=== PATIENT | female | born 1985 | race Hispanic/Latino ===

== ENCOUNTER 2017-08-01 06:41 | Day surgery (SDC) | payer OTHER ==
[2017-08-01] MEDS ORDERED: Propofol 10 mg/ml Inj (20 ML) ONE ×2 (08:47→09:16)
[2017-08-01] MEDS ORDERED: Lidocaine Hydrochloride 5 ML INJ ONE (08:47)
--- NOTE | 2017-08-01 08:58 | CP.SDSHP ---
Same Day Surgery H & P - History Proposed Procedure: egd. colonoscopy Pre-Op Diagnosis: epigastric pain. Chronic diarrhea - Previous Medical/Surgical History Cardiac: Other (hyperlipidemia, ) Neuro: Backaches, Other (herniated disc, Hpylori gastritis) Pain: 4.Moderate Pain Previous Surgical History: NSVDx3 - Allergies Allergies: Allergies No Known Allergies Allergy (Verified 08/01/17 07:35) - Physical Exam Vital Signs: Vital Signs 08/01/17 07:48 Temperature 97 F L Pulse Rate 62 Respiratory 19 Rate Blood Pressure 132/79 O2 Sat by Pulse 99 Oximetry Mental Status: Alert & Oriented x3 Neuro: WNL Heart: WNL Lungs: WNL GI: WNL - Impression Impression: epigastric pain. chronic diarrhea Pt. Evaluated Today:Candidate for Anesthesia & Procedure: Yes - Date & Time Date: 08/01/17 Time: 08:58 Short Stay Discharge - Short Stay Discharge Admitting Diagnosis/Reason for Visit: CHANGE IN BOWEL HABIT, DIARRHEA, UNSPECIFIED, EPIG Disposition: HOME/ ROUTINE
[2017-08-01] MEDS ORDERED: Pantoprazole 40 mg EC Tab PO STA (08:59)
[2017-08-01 09:06] VITALS: O2SAT 100
[2017-08-01 09:45] VITALS: TEMP 97.8
[2017-08-01 10:20] VITALS: BP 103/62; PULSE 60; RESP 12
== END 2017-08-01 10:50 | disposition home or self-care (01) ==
LOC: C.ENDO 06:41
PROVIDERS: ATTEND Internal Medicine Gastroenterology
DX: R19.4 Change in bowel habit (principal); R19.7 Diarrhea, unspecified; R10.13 Epigastric pain; K64.8 Other hemorrhoids; K20.9 Esophagitis, unspecified; K29.70 Gastritis, unspecified, without bleeding
CPT/HCPCS: 43239; 45380; 84703; 87045; 87177; 87209; 87230; 88305; 88312; 88313; 88342; 89055; J2704; J3010